=== PATIENT | male | born 1960 | race Caucasian/White ===

== ENCOUNTER 2016-05-01 11:53 | Observation (INO) | payer SELFPAY ==
[2016-05-01] VITALS (10 sets, daily range): BP systolic 166–220; BP diastolic 97–116; PULSE 56–80; RESP 18–20; TEMP 97.6; O2SAT 95–98
[~2016-05-01] VITALS: Ht 170.2 cm; Wt 80.0 kg
--- NOTE | 2016-05-01 12:26 | PD ---
HPI Chief Complaint: Neuro Symptoms/ Deficits Time Seen by Provider: 12:19 Travel History International Travel<30 days: No Contact w/Intl Traveler<30days: No Traveled to known affect area: No History of Present Illness HPI 56-year-old male with history of previous TIA, hypertension, presents to the ER today because he states that his blood pressure was high this morning, he woke up having some nausea, noticed that when he tried to walk he was a little off balance. His friend states that over the last few days, he has had some trouble speaking when he gets tired. He denies any headaches, trouble talking, numbness, weakness, chest pains, shortness of breath, or any other symptoms. He took his blood pressure medication this morning. Modifying Factors: None Associated Signs & Symptoms: Nausea, intermittent speaking difficulty, ataxia Risk Factors: Previous stroke PFSH Past Medical History Cerebrovascular Accident: Yes Hypertension: Yes Social History Tobacco Use: No Allergies-Medications (Allergen,Severity, Reaction): Coded Allergies: Contrast Media (Verified Allergy, Severe, Anaphylaxis, 05/01/16) Reported Meds & Prescriptions Reported Meds & Active Scripts Active Reported Bystolic (Nebivolol) Unknown Strength Tab Unknown Dose PO DAILY Review of Systems Except as stated in HPI: all other systems reviewed are Neg Physical Exam Narrative GENERAL: Well-developed elderly white male patient in no acute distress, awake, alert, oriented 3. SKIN: Warm and dry. HEAD: Atraumatic. Normocephalic. EYES: Pupils equal and round. No scleral icterus. No injection or drainage. ENT: No nasal bleeding or discharge. Mucous membranes pink and moist. NECK: Trachea midline. No JVD. CARDIOVASCULAR: Regular rate and rhythm. No murmur appreciated. RESPIRATORY: No accessory muscle use. Clear to auscultation. Breath sounds equal bilaterally. GASTROINTESTINAL: Abdomen soft, non-tender, nondistended. Hepatic and splenic margins not palpable. MUSCULOSKELETAL: No obvious deformities. No clubbing. No cyanosis. No edema. NEUROLOGICAL: Awake and alert. No obvious cranial nerve deficits. Motor grossly within normal limits. Normal speech. PSYCHIATRIC: Appropriate mood and affect; insight and judgment normal. NEUROLOGICAL: Awake and alert. Cranial nerves II through XII intact. Motor and sensory grossly within normal limits. Five out of 5 muscle strength in all muscle groups. Normal speech. Mild ataxia. No pronator drift. Data Data Last Documented VS Vital Signs Date Time Temp Pulse Resp B/P Pulse Ox O2 Delivery O2 Flow Rate FiO2 05/01/16 13:14 183/116 05/01/16 12:24 18 98 Room Air 05/01/16 12:20 69 05/01/16 12:16 97.6 Orders Electrocardiogram (05/01/16 12:19) Complete Blood Count With Diff (05/01/16 12:19) Comprehensive Metabolic Panel (05/01/16 12:19) Magnesium (Mg) (05/01/16 12:19) Ckmb (Isoenzyme) Profile (05/01/16 12:19) Troponin I (05/01/16 12:19) Act Partial Throm Time (Ptt) (05/01/16 12:19) Prothrombin Time / Inr (Pt) (05/01/16 12:19) Urinalysis - C+S If Indicated (05/01/16 12:19) Chest, Single Ap (05/01/16 12:19) Ct Brain W/O Iv Contrast(Rout) (05/01/16 12:19) Ecg Monitoring (05/01/16 12:19) Iv Access Insert/Monitor (05/01/16 12:19) Oximetry (05/01/16 12:19) Aspirin (Aspirin) (05/01/16 15:15) Admit Order (Ed Use Only) (05/01/16 15:02) Labs Laboratory Tests Test 05/01/16 05/01/16 12:54 14:05 White Blood Count 6.5 TH/MM3 Red Blood Count 4.98 MIL/MM3 Hemoglobin 14.0 GM/DL Hematocrit 39.9 % Mean Corpuscular Volume 80.2 FL Mean Corpuscular Hemoglobin 28.2 PG Mean Corpuscular Hemoglobin 35.1 % Concent Red Cell Distribution Width 14.5 % Platelet Count 240 TH/MM3 Mean Platelet Volume 8.1 FL Neutrophils (%) (Auto) 66.8 % Lymphocytes (%) (Auto) 22.8 % Monocytes (%) (Auto) 7.3 % Eosinophils (%) (Auto) 2.4 % Basophils (%) (Auto) 0.7 % Neutrophils # (Auto) 4.3 TH/MM3 Lymphocytes # (Auto) 1.5 TH/MM3 Monocytes # (Auto) 0.5 TH/MM3 Eosinophils # (Auto) 0.2 TH/MM3 Basophils # (Auto) 0.0 TH/MM3 CBC Comment DIFF FINAL Differential Comment Prothrombin Time 10.3 SEC Prothromb Time International 0.9 RATIO Ratio Activated Partial 26.9 SEC Thromboplast Time Sodium Level 142 MEQ/L Potassium Level 3.5 MEQ/L Chloride Level 104 MEQ/L Carbon Dioxide Level 30.6 MEQ/L Anion Gap 7 MEQ/L Blood Urea Nitrogen 14 MG/DL Creatinine 0.94 MG/DL Estimat Glomerular Filtration 82 ML/MIN Rate Random Glucose 101 MG/DL Calcium Level 8.4 MG/DL Magnesium Level 2.2 MG/DL Total Bilirubin 0.5 MG/DL Aspartate Amino Transf 13 U/L (AST/SGOT) Alanine Aminotransferase 23 U/L (ALT/SGPT) Alkaline Phosphatase 120 U/L Total Creatine Kinase 66 U/L Troponin I LESS THAN 0.02 NG/ML Total Protein 7.4 GM/DL Albumin 3.8 GM/DL Urine Color COLORLESS Urine Turbidity CLEAR Urine pH 8.0 Urine Specific [place] 1.005 Urine Protein NEG mg/dL Urine Glucose (UA) NEG mg/dL Urine Ketones NEG mg/dL Urine Occult Blood NEG Urine Nitrite NEG Urine Bilirubin NEG Urine Urobilinogen LESS THAN 2.0 MG/DL Urine Leukocyte Esterase NEG Urine WBC 1 /hpf Microscopic Urinalysis Comment CULT NOT INDICATED MDM Medical Decision Making Medical Screen Exam Complete: Yes Emergency Medical Condition: Yes Medical Record Reviewed: Yes Interpretation(s) EKG shows NSR, no ST elevation or depression, and no arrhythmias. No significant T-wave inversions. Laboratory Tests Test 05/01/16 12:54 Estimat Glomerular Filtration 82 ML/MIN (>89) Rate Calcium Level 8.4 MG/DL (8.5-10.1) Aspartate Amino Transf 13 U/L (15-37) (AST/SGOT) Alkaline Phosphatase 120 U/L (45-117) Troponin I LESS THAN 0.02 NG/ML (0.02-0.05) Differential Diagnosis Ataxia, intermittent since patient difficulties, nausea, elevated blood pressure hypertensive urgency versus hypertensive emergency versus metabolic issues versus CVA versus acute intracranial processes Narrative Course CT shows small vessel ischemic changes questionable for MS. No acute intracranial bleeding or other issues were identified. EKG did not show dysrhythmias or A. fib. Lab work was otherwise unremarkable for metabolic issues. At this point, patient was given aspirin and my plan would be to admit the patient for further evaluation. Case was discussed with Dr. Moore in family practice resident service for admission. Diagnosis Primary Impression: TIA (transient ischemic attack) Admitting Information Admitting Physician Requests: it Jourdan Serrano MD May 01, 2016 12:26
--- NOTE | 2016-05-01 12:49 | RADRPT ---
EXAM DATE/TIME: 05/01/2016 12:29 [facility] COMPARISON: No previous studies available for comparison. INDICATIONS : Chest pain and hypertension. MEDICAL HISTORY : Stroke. Hypertension SURGICAL HISTORY : None. ENCOUNTER: Initial ACUITY: 1 day PAIN SCORE: 4/10 LOCATION: Bilateral chest FINDINGS: A single view of the chest demonstrates the lungs to be symmetrically aerated without evidence of mas s, infiltrate or effusion. The cardiomediastinal contours are unremarkable. Osseous structures are intact. CONCLUSION: No acute disease. Migel Naqvi MD on May 01, 2016 at 12:47 Board Certified Radiologist. This report was verified electronically.
[2016-05-01 13:04] LABS: AUTOMATED NEUTROPHIL # 4.3 TH/MM3 (1.8-7.7); BASOPHIL % 0.7 % (0.0-2.0); EOSINOPHIL # 0.2 TH/MM3 (0-0.4); EOSINOPHIL % 2.4 % (0.0-4.0); HEMATOCRIT 39.9 % (39.0-51.0); HEMO FLAGS DIFF FINAL; LYMPH % 22.8 % (9.0-44.0); LYMPHOCYTE # 1.5 TH/MM3 (1.0-4.8); MEAN CELL VOLUME 80.2 FL (80.0-100.0); MEAN CORPUSCULAR HEMOGLOBIN 28.2 PG (27.0-34.0); MEAN CORPUSCULAR HGB CONC 35.1 % (32.0-36.0); MONO % 7.3 % (0.0-8.0); NEUT % 66.8 % (16.0-70.0); PLATELET COUNT 240 TH/MM3 (150-450); RED BLOOD COUNT 4.98 MIL/MM3 (4.50-5.90); RED CELL DISTRIBUTION WIDTH 14.5 % (11.6-17.2); WHITE BLOOD COUNT 6.5 TH/MM3 (4.0-11.0)
[2016-05-01 13:15] LABS: APTT (PATIENT) 26.9 SEC (24.3-30.1); INTERNATIONAL NORMALIZED RATIO 0.9 RATIO; PROTHROMBIN TIME - PATIENT 10.3 SEC (9.8-11.6)
[2016-05-01 13:23] LABS: ALT (GPT) 23 U/L (12-78); ANION GAP 7 MEQ/L (5-15); AST (GOT) 13 U/L (15-37); BICARBONATE 30.6 MEQ/L (21.0-32.0); BLOOD UREA NITROGEN 14 MG/DL (7-18); CHLORIDE 104 MEQ/L (98-107); GLOMERULAR FILTRATION RATE 82 ML/MIN (>89); MAGNESIUM 2.2 MG/DL (1.5-2.5); POTASSIUM 3.5 MEQ/L (3.5-5.1); SODIUM (NA) 142 MEQ/L (136-145)
[2016-05-01] MEDS ORDERED: BYST2.5T2 PO (13:25)
[2016-05-01 13:27] LABS: ALKALINE PHOSPHATASE 120 U/L (45-117); TOTAL BILIRUBIN ADULT 0.5 MG/DL (0.2-1.0)
[2016-05-01 13:30] LABS: CREATINE KINASE 66 U/L (39-308)
[2016-05-01 14:14] LABS: BLOOD, URINE NEG (NEG); GLUCOSE,URINE NEG (NEG); KETONE, URINE NEG (NEG); NITRITE,URINE NEG (NEG); URINE COLOR COLORLESS (YELLW/STRAW)
[2016-05-01 14:15] LABS: COMMENT (UR) CULT NOT INDICATED; CULTURE IF INDICATED CULT NOT INDICATED
--- NOTE | 2016-05-01 14:57 | RADRPT ---
EXAM DATE/TIME: 05/01/2016 14:19 [facility] COMPARISON: No previous studies available for comparison. INDICATIONS : Trouble speaking for a few days unsteady gait to the right. RADIATION DOSE: 56.77 CTDIvol (mGy) MEDICAL HISTORY : Cerebrovascular disease. Hypertension. SURGICAL HISTORY : None. ENCOUNTER: Initial ACUITY: 1 day PAIN SCALE: 0/10 LOCATION: cranial TECHNIQUE: Multiple contiguous axial images were obtained of the head. Using automated exposure control and adj ustment of the mA and/or kV according to patient size, radiation dose was kept as low as reasonably a chievable to obtain optimal diagnostic quality images. FINDINGS: CEREBRUM: The ventricles are normal for age. There is prominent decreased density in the periventricular white matter. No evidence of midline shift, mass lesion, hemorrhage or acute infarction. No extra-axial fl uid collections are seen. POSTERIOR FOSSA: The cerebellum and brainstem are intact. The 4th ventricle is midline. The cerebellopontine angle i s unremarkable. EXTRACRANIAL: The visualized portion of the orbits is intact. SKULL: The calvaria is intact. No evidence of skull fracture. CONCLUSION: Prominent decreased density in the cerebral white matter from demyelination. This could be secondary to causes such as small vessel ischemic change versus other etiologies including multiple sclerosis. Migel Naqvi MD on May 01, 2016 at 14:54 Board Certified Radiologist. This report was verified electronically.
[2016-05-01] MEDS ORDERED: ASPIRIN 325 MG TAB PO ONE (15:15)
--- NOTE | 2016-05-01 17:30 | HHI.HP ---
HPI Service Family Medicine Primary Care Physician Unknown Admission Diagnosis neurological symptoms/possible TIA Diagnoses: International Travel<30 Days: No Contact w/Intl Traveler<30days: No Known Affected Area: No History of Present Illness Patient is a 56-year-old male with a history significant of stroke. Admitted here today due to the onset of an unsteady gait at 7:30 this morning. Denied any blurry vision, slurred speech, paresthesias. This morning he found his blood pressure elevated with systolic of 210. BP normally runs around 140s systolic. He does report residual right arm weakness from his prior stroke. At the time of my evaluation he reports that he is 100% better. Of note he does report a history of minor voice changes at the end of the day and periodic blurry vision after driving but none of these are significant to him. Patient otherwise denies any symptoms including chest pain, SOB. (Samantha Vivas MD R2) Review of Systems Constitutional: DENIES: Fatigue, Fever, Change in appetite Eyes: COMPLAINS OF: Blurred vision Ears, nose, mouth, throat: DENIES: Throat pain, Running Nose Respiratory: DENIES: Shortness of breath Cardiovascular: DENIES: Chest pain, Lower Extremity Edema Gastrointestinal: DENIES: Abdominal pain, Nausea, Vomiting Genitourinary: DENIES: Dysuria Musculoskeletal: DENIES: Joint pain Integumentary: DENIES: Rash Neurologic: COMPLAINS OF: Abnormal gait, DENIES: Headache, Paresthesias (Samantha Valladares MD R2) Past Family Social History Past Medical History HTN Stroke with residual right-sided weakness Past Surgical History None Reported Medications Reported Meds & Active Scripts Active Reported Bystolic (Nebivolol) Unknown Strength Tab Unknown Dose PO DAILY (Samantha Vivas MD R2) Allergies: Coded Allergies: Contrast Media (Verified Allergy, Severe, Anaphylaxis, 05/01/16) Family History Mother and Father were reportedly healthy and of old age. Social History Lives in [place] but just moved to the area for a job Tobacco: chew since 4yrs old Alcohol: denies Illicit: denies (Samantha Vivas MD R2) Physical Exam Vital Signs Vital Signs Date Time Temp Pulse Resp B/P Pulse Ox O2 Delivery O2 Flow Rate FiO2 05/01/16 13:14 183/116 05/01/16 12:24 18 98 Room Air 3/11/17 12:20 69 18 97 Room Air 05/01/16 12:16 97.6 69 18 220/115 97 05/01/16 11:55 97.6 80 20 206/109 95 Room Air Physical Exam GENERAL: This is a well-nourished, well-developed patient, in no apparent distress. Laying in bed SKIN: No rashes, ecchymoses or lesions. Cool and dry. EYES: Pupils equal round and reactive. Extraocular motions intact. No scleral icterus. No injection or drainage. ENT: Nose without bleeding, purulent drainage. Throat without erythema, tonsillar hypertrophy or exudate. Uvula midline. Airway patent. NECK: No lymphadenopathy. Supple, nontender, no meningeal signs. CARDIOVASCULAR: Regular rate and rhythm without murmurs, gallops, or rubs. RESPIRATORY: Clear to auscultation. Breath sounds equal bilaterally. No wheezes , rales, or rhonchi. GASTROINTESTINAL: Abdomen soft, non-tender, nondistended. No hepato-splenomegaly , or palpable masses. No guarding. MUSCULOSKELETAL: Extremities without clubbing, cyanosis, or edema. No calf tenderness. NEUROLOGICAL: Awake and alert. Cranial nerves II through XII intact. Motor grossly within normal limits. Five out of 5 muscle strength in all muscle groups. No pronator drift or cerebellar signs. Normal speech. Laboratory Laboratory Tests Test 05/01/16 05/01/16 12:54 14:05 White Blood Count 6.5 Red Blood Count 4.98 Hemoglobin 14.0 Hematocrit 39.9 Mean Corpuscular Volume 80.2 Mean Corpuscular Hemoglobin 28.2 Mean Corpuscular Hemoglobin 35.1 Concent Red Cell Distribution Width 14.5 Platelet Count 240 Mean Platelet Volume 8.1 Neutrophils (%) (Auto) 66.8 Lymphocytes (%) (Auto) 22.8 Monocytes (%) (Auto) 7.3 Eosinophils (%) (Auto) 2.4 Basophils (%) (Auto) 0.7 Neutrophils # (Auto) 4.3 Lymphocytes # (Auto) 1.5 Monocytes # (Auto) 0.5 Eosinophils # (Auto) 0.2 Basophils # (Auto) 0.0 CBC Comment DIFF FINAL Differential Comment Prothrombin Time 10.3 Prothromb Time International 0.9 Ratio Activated Partial 26.9 Thromboplast Time Sodium Level 142 Potassium Level 3.5 Chloride Level 104 Carbon Dioxide Level 30.6 Anion Gap 7 Blood Urea Nitrogen 14 Creatinine 0.94 Estimat Glomerular Filtration 82 Rate Random Glucose 101 Calcium Level 8.4 Magnesium Level 2.2 Total Bilirubin 0.5 Aspartate Amino Transf 13 (AST/SGOT) Alanine Aminotransferase 23 (ALT/SGPT) Alkaline Phosphatase 120 Total Creatine Kinase 66 Troponin I LESS THAN 0.02 Total Protein 7.4 Albumin 3.8 Urine Color COLORLESS Urine Turbidity CLEAR Urine pH 8.0 Urine Specific [place] 1.005 Urine Protein NEG Urine Glucose (UA) NEG Urine Ketones NEG Urine Occult Blood NEG Urine Nitrite NEG Urine Bilirubin NEG Urine Urobilinogen LESS THAN 2.0 Urine Leukocyte Esterase NEG Urine WBC 1 Microscopic Urinalysis Comment CULT NOT INDICATED (Samantha Vivas MD R2) Result Diagram: 05/01/16 1254 05/01/16 1254 Imaging Last Impressions Head CT 05/01/16 1219 Signed Impressions: Service Date/Time: Sunday, May 01, 2016 14:19 - CONCLUSION: Prominent decreased density in the cerebral white matter from demyelination. This could be secondary to causes such as small vessel ischemic change versus other etiologies including multiple sclerosis. Migel Naqvi MD Chest X-Ray 05/01/16 1219 Signed Impressions: Service Date/Time: Sunday, May 01, 2016 12:29 - CONCLUSION: No acute disease. Migel Naqvi MD (Samantha Vivas MD R2) Assessment and Plan Assessment and Plan 56-year-old male with a history significant of stroke. Admitted for TIA/Stroke eval. Code Status Full Discussed Condition With Dr. Moore (Samantha Vivas MD R2) Attending Attestation Patient seen and examined. Case reviewed and discussed with the resident team. Agree with plan of care as discussed with me and documented in the resident note. pt seen in ED on admission (Sara Moore MD) Problem List: (1) TIA (transient ischemic attack) Status: Acute Plan: Acute onset of unsteady gait this morning and a reported BP of 200 systolic. No other associated symptoms. History significant for prior stroke. Upon my evaluation, symptoms had completely resolved. -Head CT significant for prominent decreased density in the cerebral white matter from demyelination. Concern for small vessel ischemic changes versus other etiologies such as MS. -Brain MRI: No acute infarct or other intracranial abnormality. Chronic white matter changes that are quite severe for patient's age. Chronic microvascular ischemic changes are considered clear. -EKG, troponin 1 unremarkable -CBC, CMP, coags, UA, CXR unremarkable -Lipid panel, A1c ordered -Neuro and glucose checks -PT consulted Medications: * Aspirin, will need to be continued as outpatient as patient is currently not on any antiplatelet therapy * Started atorvastatin * Nicotine patches held due to suspected TIA/Stroke (2) HTN (hypertension) Status: Acute Plan: Initial concern for hypertensive urgency but BP has decreased spontaneously. Permissive hypertension was initially permitted due to concern for possible ischemic stroke but since MRI is negative, will control BP. -Restart home nebibolol (to be started 05/02 as patient did have a low pulse) -Started Lisinopril 10mg daily -Vasotec PRN (3) Nutrition, metabolism, and development symptoms Status: Acute Plan: Diet: Heart healthy Electrolytes: Unremarkable Fluids: None DVT prophylaxis: Heparin GI prophylaxis: Not indicated (Samantha Vivas MD R2) Problem Qualifiers (1) TIA (transient ischemic attack): Qualified Code: G45.8 - Other specified transient cerebral ischemias (2) HTN (hypertension): Qualified Code: I10 - Essential hypertension Samantha Vivas MD R2 May 01, 2016 17:29 Sara Moore MD May 02, 2016 11:33
[2016-05-01] MEDS ORDERED: DEXTROSE 50% IN WATER 50 ML VIAL(D50) IV PUSH PRN (18:15)
[2016-05-01] MEDS ORDERED: GLUCAGON 1 MG/ML VIAL OTHER PRN (18:15)
[2016-05-01] MEDS ORDERED: SODIUM CHLORIDE 0.9% FLUSH 5 ML FLUSH IVF PRN (18:15)
--- NOTE | 2016-05-01 19:36 | RADRPT ---
EXAM DATE/TIME: 05/01/2016 18:58 [facility] COMPARISON: CT BRAIN W/O CONTRAST, May 01, 2016, 14:19. INDICATIONS : TIA. Ataxia. MEDICAL HISTORY : Hypertension. SURGICAL HISTORY : None. ENCOUNTER: Initial ACUITY: 1 day PAIN SCORE: 0/10 LOCATION: cranial TECHNIQUE: Multiplanar, multisequence MRI of the brain was performed without contrast. FINDINGS: CEREBRUM: The ventricles are normal for age. No evidence of midline shift, mass lesion, hemorrhage or acute in farction. No extraaxial fluid collections are seen. The pituitary gland and suprasellar cistern are normal in configuration. WHITE MATTER: Moderate to severe, chronic flair signal abnormality seen in the white matter of both cerebral hemisp heres. No associated restricted diffusion. POSTERIOR FOSSA: The cerebellum and brainstem are intact. The 4th ventricle is midline. The cerebellopontine angle is unremarkable. The cerebellar tonsils are normal in position. DIFFUSION IMAGING: No focal areas of restricted diffusion are seen. No evidence of acute infarction. EXTRACRANIAL: The visualized portions of the orbits and paranasal sinuses are unremarkable. CONCLUSION: 1. No acute infarct or other acute intracranial abnormality. 2. Chronic white matter changes that are quite severe for patient this age. Chronic microvascular isc hemic changes are considered most likely. Migel Leggett MD on May 01, 2016 at 19:33 Board Certified Radiologist. This report was verified electronically.
[2016-05-01] MEDS: HEPARIN SODIUM - SQ 10,000 UNITS/ML VIAL SQ SCH (20:30)
[2016-05-01] MEDS ORDERED: ATORVASTATIN 10 MG TAB PO SCH (21:00)
[2016-05-01] MEDS ORDERED: ENALAPRILAT 1.25 MG/ML VIAL IV PRN (21:00)
[2016-05-01] MEDS: INSULIN ASPART SUPPLEMENTAL SCALE SQ SCH (21:00)
[2016-05-01] MEDS ORDERED: LISINOPRIL 5 MG TAB PO SCH (21:00)
[2016-05-01] MEDS: SODIUM CHLORIDE 0.9% FLUSH 5 ML FLUSH IVF SCH (21:51)
[2016-05-02 00:28] VITALS: BP 185/108
[2016-05-02 00:34] VITALS: BP 184/108
[2016-05-02] MEDS ORDERED: cloNIDine HCL 0.1 MG TAB PO PRN (01:00)
[2016-05-02 02:03] VITALS: BP 128/85; PULSE 62; RESP 20; TEMP 97.6; O2SAT 96
[2016-05-02 05:37] LABS: HDL CHOLESTEROL 22.9 MG/DL (40.0-60.0)
[2016-05-02] MEDS: HEPARIN SODIUM - SQ 10,000 UNITS/ML VIAL SQ SCH (05:51)
[2016-05-02] MEDS: INSULIN ASPART SUPPLEMENTAL SCALE SQ SCH (05:51)
[2016-05-02 07:29] VITALS: O2SAT 96
[2016-05-02 07:48] VITALS: BP 118/68; PULSE 50; RESP 20; TEMP 98.2; O2SAT 96
[2016-05-02] MEDS ORDERED: LIPI10TA PO (08:39)
[2016-05-02] MEDS ORDERED: Aspirin Chew PO (08:39)
[2016-05-02] MEDS ORDERED: LISI10TA3 PO (08:39)
--- NOTE | 2016-05-02 08:40 | HHI.DCPOC ---
Discharge Care Plan Diagnosis: (1) TIA (transient ischemic attack) (2) HTN (hypertension) Goals to Promote Your Health * To prevent worsening of your condition and complications * To maintain your health at the optimal level Directions to Meet Your Goals Take your medications as prescribed Follow your dietary instruction Follow activity as directed Keep your appointments as scheduled Take your immunizations and boosters as scheduled If your symptoms worsen call your PCP, if no PCP go to Urgent Care Center or Emergency Room Smoking is Dangerous to Your Health. Avoid second hand smoke Call the 24-hour hour crisis hotline for domestic abuse at Samantha Vivas MD R2 May 02, 2016 08:40
[2016-05-02] MEDS ORDERED: SIMV20TA PO (08:42)
[2016-05-02] MEDS: SODIUM CHLORIDE 0.9% FLUSH 5 ML FLUSH IVF SCH (08:46)
[2016-05-02 09:00] VITALS: PULSE 63
[2016-05-02] MEDS ORDERED: LISINOPRIL 5 MG TAB PO SCH (09:00)
[2016-05-02] MEDS ORDERED: ASPIRIN 81 MG CHEW TAB PO SCH (09:00)
[2016-05-02] MEDS ORDERED: LISINOPRIL 10 MG TAB PO SCH (09:00)
[2016-05-02] MEDS ORDERED: NEBIVOLOL 5 MG TAB PO SCH (09:00)
[2016-05-02] MEDS ORDERED: POTASSIUM CHLORIDE 20 MEQ CONTROLLED RELEASE TAB PO ONE (09:00)
--- NOTE | 2016-05-02 10:02 | HHI.HP ---
[facility] Service Family Medicine Primary Care Physician Unknown Admission Diagnosis neurological symptoms/possible TIA Diagnoses: (1) TIA (transient ischemic attack) Diagnosis: Principal (2) HTN (hypertension) Diagnosis: Principal (3) Nutrition, metabolism, and development symptoms Diagnosis: Principal International Travel<30 Days: No Contact w/Intl Traveler<30days: No Known Affected Area: No History of Present Illness Mr Menendez is a 56-year-old male with a history significant for stroke 8 years ago. Admitted due to the onset of an unsteady gait at 7:30 the morning of admission. Denied any blurry vision, slurred speech, paresthesias or any focal weakness. This morning he found his blood pressure elevated with systolic of 210. BP normally runs around 140s systolic. He does report residual right arm weakness from his prior stroke. At the time of my evaluation he reports that he is 100% better. He also has been up ambulating multiple times so his PT consult was cancelled. Of note he does report a history of minor voice changes at the end of the day and periodic blurry vision after driving but none of these are significant to him. Patient otherwise denies any symptoms including chest pain, SOB. He has not had any sxs at all since coming to the ED and has been up walking without any problems. He wishes to go home today. He plans on moving to [place] and is looking to establish with a Dr here and was given a card for the family practice clinic if he chooses or another Dr is always an option. His MRI showed no CVA and nothing except white matter changes more extensive than what would be expected at his age. We discussed the importance of preventing CVAs and MIs and explained that aspirin and cholesterol meds and antihypertensives can all prevent CVAs. He wished to leave the hospital this am and knows that if he has any new or unusual sxs especially focal weakness, etc. would warrant an immediate evaluation. Review of Systems Other Constitutional: DENIES: Fatigue, Fever, Change in appetite Eyes: COMPLAINS OF: Blurred vision Ears, nose, mouth, throat: DENIES: Throat pain, Running Nose Respiratory: DENIES: Shortness of breath Cardiovascular: DENIES: Chest pain, Lower Extremity Edema Gastrointestinal: DENIES: Abdominal pain, Nausea, Vomiting Genitourinary: DENIES: Dysuria Musculoskeletal: DENIES: Joint pain Integumentary: DENIES: Rash Neurologic: COMPLAINS OF: Abnormal gait, DENIES: Headache, Paresthesias Past Family Social History Past Medical History HTN Stroke with residual right-sided weakness Past Surgical History None Allergies: Coded Allergies: Contrast Media (Verified Allergy, Severe, Anaphylaxis, 05/01/16) Family History Mother and Father were reportedly healthy and of old age. Social History Lives in [place] but just moved to the area for a job Tobacco: chew since 4yrs old Alcohol: denies Illicit: denies Physical Exam Vital Signs Vital Signs Date Time Temp Pulse Resp B/P Pulse Ox O2 Delivery O2 Flow Rate FiO2 05/02/16 07:48 98.2 50 20 118/68 96 05/02/16 07:29 96 21 05/02/16 02:03 97.6 62 20 128/85 96 05/02/16 00:34 184/108 05/02/16 00:28 185/108 05/01/16 23:36 97.6 63 20 195/100 95 05/01/16 21:39 97.6 80 20 188/97 98 05/01/16 20:53 170/101 96 Room Air 05/01/16 19:59 97 21 05/01/16 18:35 56 18 166/110 Room Air 05/01/16 18:28 97 21 05/01/16 13:14 183/116 05/01/16 12:24 18 98 Room Air 05/01/16 12:20 69 18 97 Room Air 05/01/16 12:16 97.6 69 18 220/115 97 05/01/16 11:55 97.6 80 20 206/109 95 Room Air Physical Exam GENERAL: This is a well-nourished, well-developed patient, in no apparent distress. SKIN: No rashes, ecchymoses or lesions. Cool and dry. EYES: Pupils equal round and reactive. Extraocular motions intact. No scleral icterus. No injection or drainage. ENT: Nose without bleeding, purulent drainage. Throat without erythema, tonsillar hypertrophy or exudate. Uvula midline. Airway patent. no carotid bruits NECK: No lymphadenopathy. Supple, nontender, no meningeal signs. CARDIOVASCULAR: Regular rate and rhythm without murmurs, gallops, or rubs. RESPIRATORY: Clear to auscultation. Breath sounds equal bilaterally. No wheezes , rales, or rhonchi. GASTROINTESTINAL: Abdomen soft, non-tender, nondistended. No hepato-splenomegaly , or palpable masses. No guarding. MUSCULOSKELETAL: Extremities without clubbing, cyanosis, or edema. No calf tenderness. NEUROLOGICAL: Awake and alert. Cranial nerves II through XII intact. Motor grossly within normal limits. Five out of 5 muscle strength in all muscle groups. No pronator drift or cerebellar signs. Normal speech. Laboratory Laboratory Tests Test 05/01/16 05/01/16 05/02/16 12:54 14:05 04:44 White Blood Count 6.5 Red Blood Count 4.98 Hemoglobin 14.0 Hematocrit 39.9 Mean Corpuscular Volume 80.2 Mean Corpuscular Hemoglobin 28.2 Mean Corpuscular Hemoglobin 35.1 Concent Red Cell Distribution Width 14.5 Platelet Count 240 Mean Platelet Volume 8.1 Neutrophils (%) (Auto) 66.8 Lymphocytes (%) (Auto) 22.8 Monocytes (%) (Auto) 7.3 Eosinophils (%) (Auto) 2.4 Basophils (%) (Auto) 0.7 Neutrophils # (Auto) 4.3 Lymphocytes # (Auto) 1.5 Monocytes # (Auto) 0.5 Eosinophils # (Auto) 0.2 Basophils # (Auto) 0.0 CBC Comment DIFF FINAL Differential Comment Prothrombin Time 10.3 Prothromb Time International 0.9 Ratio Activated Partial 26.9 Thromboplast Time Sodium Level 142 140 Potassium Level 3.5 3.0 Chloride Level 104 104 Carbon Dioxide Level 30.6 27.0 Anion Gap 7 9 Blood Urea Nitrogen 14 15 Creatinine 0.94 0.98 Estimat Glomerular Filtration 82 79 Rate Random Glucose 101 106 Calcium Level 8.4 8.0 Magnesium Level 2.2 Total Bilirubin 0.5 Aspartate Amino Transf 13 (AST/SGOT) Alanine Aminotransferase 23 (ALT/SGPT) Alkaline Phosphatase 120 Total Creatine Kinase 66 Troponin I LESS THAN 0.02 Total Protein 7.4 Albumin 3.8 Urine Color COLORLESS Urine Turbidity CLEAR Urine pH 8.0 Urine Specific [place] 1.005 Urine Protein NEG Urine Glucose (UA) NEG Urine Ketones NEG Urine Occult Blood NEG Urine Nitrite NEG Urine Bilirubin NEG Urine Urobilinogen LESS THAN 2.0 Urine Leukocyte Esterase NEG Urine WBC 1 Microscopic Urinalysis Comment CULT NOT INDICATED Triglycerides Level 198 Cholesterol Level 133 LDL Cholesterol 71 HDL Cholesterol 22.9 Cholesterol/HDL Ratio 5.80 Result Diagram: 05/01/16 1254 05/02/16 0444 Imaging Last Impressions Head CT 05/01/16 1219 Signed Impressions: Service Date/Time: Sunday, May 01, 2016 14:19 - CONCLUSION: Prominent decreased density in the cerebral white matter from demyelination. This could be secondary to causes such as small vessel ischemic change versus other etiologies including multiple sclerosis. Migel Naqvi MD Chest X-Ray 05/01/16 1219 Signed Impressions: Service Date/Time: Sunday, May 01, 2016 12:29 - CONCLUSION: No acute disease. Migel Naqvi MD Assessment and Plan Assessment and Plan 56-year-old male with a history significant of stroke. Admitted for TIA/Stroke eval. which fortunately showed a normal MRI and normal strength without neuro deficits Discharge-he was advised he is at risk for vascular events and will be sent home on antihypertensive, cholesterol med, and aspirin Problem List: (1) TIA (transient ischemic attack) Status: Acute Plan: Acute onset of unsteady gait and a reported BP of 200 systolic. No other associated symptoms. History significant for prior stroke. Upon my evaluation, symptoms had completely resolved. -Head CT significant for prominent decreased density in the cerebral white matter from demyelination. Concern for small vessel ischemic changes versus other etiologies such as MS. -Brain MRI: No acute infarct or other intracranial abnormality. Chronic white matter changes that are quite severe for patient's age. Chronic microvascular ischemic changes are considered clear. -EKG, troponin 1 unremarkable -CBC, CMP, coags, UA, CXR unremarkable -Lipid panel, A1c ordered -Neuro and glucose checks -PT consulted Medications: * Aspirin, will need to be continued as outpatient as patient is currently not on any antiplatelet therapy * Started atorvastatin * Nicotine patches held due to suspected TIA/Stroke (2) HTN (hypertension) Status: Acute Plan: Initial concern for hypertensive urgency but BP has decreased spontaneously. Permissive hypertension was initially permitted due to concern for possible ischemic stroke but since MRI is negative, will control BP. -Restart home nebibolol (to be started 05/02 as patient did have a low pulse) -Started Lisinopril 10mg daily -Vasotec [place]-discussed with pt that lisinopril is inexpensive and he can have this at discharge and he agreed. He was advised to follow up with a Dr a week after discharge and his meds can be further adjusted (3) Nutrition, metabolism, and development symptoms Status: Acute Plan: Diet: Heart healthy Electrolytes: Unremarkable Fluids: None DVT prophylaxis: Heparin GI prophylaxis: Not indicated Problem Qualifiers (1) TIA (transient ischemic attack): Qualified Code: G45.8 - Other specified transient cerebral ischemias (2) HTN (hypertension): Qualified Code: I10 - Essential hypertension Sara Moore MD May 02, 2016 10:02
[2016-05-02 10:25] LABS: HEMOGLOBIN A1a 0.8 %; HEMOGLOBIN A1b 1.3 %; HEMOGLOBIN Ao 87.3 %; HEMOGLOBIN LA1C 1.7 %; HEMOGLOBIN P3 3.3 %
--- NOTE | 2016-05-03 07:17 | EKG ---
Date Performed: 05/01/2016 Time Performed: 12:52:00 PTAGE: 56 years EKG: Sinus rhythm MARKED LEFT AXIS DEVIATION MODERATE VOLTAGE CRITERIA FOR LVH, CONSIDER NORMAL VARIANT ABNORMAL ECG NO PREVIOUS TRACING DOCTOR: Dilip Muhammad Interpretating Date/Time 05/03/2016 07:15:38
== END 2016-05-02 10:36 | disposition home or self-care (01) ==
LOC: NEPC 11:53 → NEDA 15:03 → NEPGCP 21:29
PROVIDERS: ADMIT Family Medicine; ATTEND Family Medicine
DX: G45.9 Transient cerebral ischemic attack, unspecified (principal); I10 Essential (primary) hypertension; Z91.041 Radiographic dye allergy status
CPT/HCPCS: 70450; 70551; 71010; 80048; 80053; 80061; 81001; 82550; 82948; 83036; 83735; 84484; 85025; 85610; 85730; 93005; 99285; G0378; J1644

== ENCOUNTER 2016-06-13 13:22 | Emergency (ER) | payer OTHER ==
[2016-06-13] VITALS (7 sets, daily range): BP systolic 148–230; BP diastolic 93–130; PULSE 70–88; RESP 16–20; TEMP 98.6; O2SAT 98–99
[~2016-06-13] VITALS: Ht 170.2 cm; Wt 84.0 kg
[~2016-06-13 13:22] MED LIST: Aspirin Chew PO; LISI10TA3 PO; SIMV20TA PO
[2016-06-13] MEDS ORDERED: LISINOPRIL 20 MG TAB PO ONE (14:00)
--- NOTE | 2016-06-13 14:08 | PD ---
HPI Chief Complaint: Hypertension Time Seen by Provider: 14:05 Travel History International Travel<30 days: No Contact w/Intl Traveler<30days: No Traveled to known affect area: No History of Present Illness HPI Patient is a 56-year-old male presenting to emergency for evaluation of high blood pressure. Patient states the last day and have his blood pressure has been elevated over 200 systolic with the highest reading being 230/150. Patient denies any physical complaints at this time, no chest pain, no shortness breath, no dizziness, no headache, no weakness, no abdominal pain. Patient reports a history of hypertension and states he's been taking simvastatin to treat this. Patient reports checking his blood pressure daily. He states he occasionally has symptoms related to the high blood pressure readings but he has no complaints at this time. Patient's past medical history significant for hypertension, CVA, TIA 2, hyperlipidemia. He is a nonsmoker. PFSH Past Medical History Hx Anticoagulant Therapy: Yes High Cholesterol: Yes Cerebrovascular Accident: Yes Hypertension: Yes Social History Alcohol Use: No Tobacco Use: No Substance Use: No Allergies-Medications (Allergen,Severity, Reaction): Coded Allergies: Contrast Media (Verified Allergy, Severe, Anaphylaxis, 06/13/16) Reported Meds & Prescriptions Reported Meds & Active Scripts Active Clonidine (Clonidine HCl) 0.1 Mg Tab 0.1 Mg PO BID PRN 10 Days Bystolic (Nebivolol) 10 Mg Tab 10 Mg PO DAILY Lisinopril 20 Mg Tab 20 Mg PO DAILY Lisinopril 10 Mg Tab 10 Mg PO DAILY Reported Aspirin Low Dose (Aspirin) 81 Mg Chew 81 Mg CHEW DAILY Review of Systems Except as stated in HPI: all other systems reviewed are Neg Physical Exam Narrative GENERAL: Well-developed, well-nourished, alert male. Resting comfortably in no acute distress. SKIN: Focused skin assessment warm/dry. HEAD: Atraumatic. Normocephalic. EYES: Pupils equal and round. No scleral icterus. No injection or drainage. ENT: No nasal bleeding or discharge. Mucous membranes pink and moist. NECK: Trachea midline. No JVD. CARDIOVASCULAR: Regular rate and rhythm. No murmur appreciated. RESPIRATORY: No accessory muscle use. Clear to auscultation. Breath sounds equal bilaterally. GASTROINTESTINAL: Abdomen soft, non-tender, nondistended. Hepatic and splenic margins not palpable. MUSCULOSKELETAL: No obvious deformities. No clubbing. No cyanosis. No edema. NEUROLOGICAL: Awake and alert. No obvious cranial nerve deficits. Motor grossly within normal limits. Normal speech. PSYCHIATRIC: Appropriate mood and affect; insight and judgment normal. Data Data Last Documented VS Vital Signs Date Time Temp Pulse Resp B/P Pulse Ox O2 Delivery O2 Flow Rate FiO2 06/13/16 17:39 71 16 148/93 06/13/16 17:04 99 06/13/16 14:14 Room Air 06/13/16 13:24 98.6 Orders Lisinopril (Prinivil) (06/13/16 14:00) Basic Metabolic Panel (Bmp) (06/13/16 13:56) Potassium Chloride (Kcl) (06/13/16 14:45) Amlodipine (Norvasc) (06/13/16 15:00) Nebivolol (Bystolic) (06/13/16 15:00) Clonidine (Catapres) (06/13/16 16:15) Hydralazine Inj (Apresoline Inj) (06/13/16 17:15) Labs Laboratory Tests Test 06/13/16 14:00 Sodium Level 140 MEQ/L Potassium Level 3.4 MEQ/L Chloride Level 104 MEQ/L Carbon Dioxide Level 25.7 MEQ/L Anion Gap 10 MEQ/L Blood Urea Nitrogen 13 MG/DL Creatinine 0.85 MG/DL Estimat Glomerular Filtration 93 ML/MIN Rate Random Glucose 99 MG/DL Calcium Level 8.9 MG/DL [facility] Medical Decision Making Medical Screen Exam Complete: Yes Emergency Medical Condition: Yes Interpretation(s) Vital Signs Date Time Temp Pulse Resp B/P Pulse Ox O2 Delivery O2 Flow Rate FiO2 06/13/16 13:24 98.6 88 20 218/129 98 Room Air Differential Diagnosis Hypertensive urgency versus elevated blood pressure reading versus medication noncompliance versus other Narrative Course Patient is 48-year-old male presenting to the emergency department for evaluation of elevated blood pressure reading. He has a history of hypertension. Patient is asymptomatic currently. When asked what medications he was currently taking for his blood pressure patient pulled out a prescription for simvastatin. At this time we will check a BMP to assess renal function and potassium level. Patient was given lisinopril 20 mg times one dose orally. We'll continue to monitor. Patient was given lisinopril 20 mg by mouth, BP remained elevated, he was then given a dose of bysystolic. Clonidine 0.1 mg by mouth. BP remained elevated and he was given 1 dose of IV hydralazine. Patient's blood pressure normalized. He was given strict instructions to follow-up with a primary doctor for ongoing evaluation and management. He was advised to return to emergency department for any new or worsening symptoms. He was advised to take medications at the same time every day and do not skip dosing to avoid rebound hypertension. Patient was also given clonidine 0.1 mg when necessary with parameters for systolic greater than 180 or diastolic greater than 100. Patient verbalized understanding of all of these instructions. Patient is stable for discharge. Diagnosis Primary Impression: HTN (hypertension) Qualified Code: I10 - Essential hypertension Referrals: [facility] Primary Care Physician Patient Instructions: General Instructions Additional Instructions: Follow-up with your primary doctor or at the [facility] Take medications at the same time every day, do not skip doses. Return to emergency department for any new or worsening symptoms Med/Other Pt SpecificInfo: Prescription(s) given Scripts Clonidine 0.1 Mg Tab0.1 Mg PO BID PRN (SBP> OR = 180, DBP> OR = 100) 10 Days Ref 0 Prov:Eboni Sierra 06/13/16 Nebivolol (Bystolic)10 Mg Tab10 Mg PO DAILY #30 TAB Ref 0 Prov:Eboni Sierra 06/13/16 Lisinopril 20 Mg Tab20 Mg PO DAILY #30 TAB Ref 0 Prov:Eboni Sierra 06/13/16 Disposition: 01 DISCHARGE HOME Condition: Stable Eboni Sierra Jun 13, 2016 14:08
[2016-06-13 14:40] LABS: BICARBONATE 25.7 MEQ/L (21.0-32.0); POTASSIUM 3.4 MEQ/L (3.5-5.1)
[2016-06-13] MEDS ORDERED: POTASSIUM CHLORIDE 20 MEQ CONTROLLED RELEASE TAB PO ONE (14:45)
[2016-06-13] MEDS ORDERED: NEBIVOLOL 10 MG TAB PO ONE (15:00)
[2016-06-13] MEDS ORDERED: cloNIDine HCL 0.1 MG TAB PO ONE (16:15)
[2016-06-13] MEDS ORDERED: hydrALAZINE HCL 20 MG/ML VIAL IV PUSH ONE (17:15)
[2016-06-13] MEDS ORDERED: BYST10TA2 PO (17:37)
[2016-06-13] MEDS ORDERED: CLON0.1T PO (17:37)
[2016-06-13] MEDS ORDERED: LISI-515 PO (17:37)
[2016-06-13] MEDS ORDERED: ASPI81CH37 CHEW (17:51)
== END 2016-06-13 18:02 | disposition home or self-care (01) ==
LOC: NEPE 13:22
DX: I10 Essential (primary) hypertension (principal); Z79.01 Long term (current) use of anticoagulants; Z79.82 Long term (current) use of aspirin
CPT/HCPCS: 80048; 96374; 99283; J0360